=== PATIENT | female | born 1965 | race American Indian/Alaskan Native ===

== ENCOUNTER 2017-02-01 18:49 | Emergency (ER) | payer MEDICAID, OTHER, SELFPAY ==
[~2017-02-01] VITALS: Ht 177.8 cm; Wt 124.6 kg
[2017-02-01 18:58] VITALS: BP 136/90
[2017-02-01] MEDS ORDERED: KETOROLAC 30 MG/1 ML IM ONE (19:30)
[2017-02-01] MEDS ORDERED: METHOCARBAMOL 750 MG TABLET PO ONE (19:30)
[2017-02-01] MEDS ORDERED: METHOCARBAMOL 750 MG TABLET ONE (19:59)
[2017-02-01] MEDS ORDERED: KETOROLAC 30 MG/1 ML ONE (19:59)
[2017-02-01] MEDS ORDERED: L.E.T SOLUTION TP ONE (20:00)
== END 2017-02-01 20:53 | disposition home or self-care (01) ==
LOC: ED 19:47
DX: M16.11 Unilateral primary osteoarthritis, right hip (principal); F17.200 Nicotine dependence, unspecified, uncomplicated; Z88.5 Allergy status to narcotic agent
CPT/HCPCS: 73502; 96372; 99284; J1885